=== PATIENT | female | born 1990 | race Hispanic/Latino ===

== ENCOUNTER 2017-09-12 13:42 | Emergency (ER) | payer BC, SELFPAY ==
[2017-09-12] MEDS ORDERED: Adacel (T-DAP) 0.5 ML VIAL ONE (13:50)
[2017-09-12] MEDS ORDERED: Bacitracin Zinc 1 Packet ONE (15:05)
== END 2017-09-12 15:16 | disposition home or self-care (01) ==
LOC: ERS 13:42
DX: S61.512A Laceration without foreign body of left wrist, initial encounter (principal); Z23 Encounter for immunization; X99.1XXA Assault by knife, initial encounter
CPT/HCPCS: 90471; 90715

== ENCOUNTER 2018-12-06 09:08 | Outpatient (CLI) | payer OTHER ==
--- NOTE | 2018-12-06 11:41 | ULT ---
ABDOMINAL ULTRASOUND: Date: 12/06/18 HISTORY: Abdominal pain. FINDINGS: Real-time imaging of the upper abdomen was performed. This shows the gallbladder to have been removed . The common bile duct is never well visualized. The liver is somewhat difficult to penetrate. It elaine sures 18.7 cm in length. I do not see any signs of ductal dilatation. Spleen measures 10.2 cm. Right and left kidneys are normal in size and not obstructed. The pancreas is obscured, as are portio ns of the abdominal aorta and IVC. IMPRESSION: 1. Technically difficult exam due to body habitus. 2. Post cholecystectomy change. 3. Increased echogenicity of the liver suggesting fatty change. POS: [facility]
== END 2018-12-06 09:09 | disposition home or self-care (01) ==
LOC: BICULT 09:08
PROVIDERS: ATTEND Family Medicine
DX: R74.0 Nonspecific elevation of levels of transaminase and lactic acid dehydrogenase [LDH] (principal); R93.2 Abnormal findings on diagnostic imaging of liver and biliary tract; Z90.49 Acquired absence of other specified parts of digestive tract
CPT/HCPCS: 76700

== ENCOUNTER 2024-01-03 15:21 | Emergency (ER) | payer BC ==
[2024-01-03 16:14] LABS: Bacteria/HPF None Seen HPF (None Seen); Bilirubin Negative (Negative); Blood, Urine Trace (Negative); CAUTI Indications for Culture Pelvic or flank pain; Clarity Clear (Clear); Glucose, Urine (Dipstick) Normal (Negative); Ketone, Urine Negative (Negative); Leukocyte 500 Leu/uL (Negative); Nitrite Negative (Negative); Pregnancy Test - Urine (BHCG) Negative (Negative); Pregu Control Background? CLEAR/WHITE (CLR/WHITE); Pregu Control Bar Appear? YES (CONTROL BAR); Protein, Urine (Dipstick) Negative (Neg-Trace); RBC/HPF 0-3 HPF (0-3); Specific Gravity 1.027 (1.002-1.036); Specific Gravity, Urine 1.027 (1.002-1.036); WBC/HPF 21-50 HPF (0-3)
[2024-01-03 16:18] LABS: Urine Culture Reflex Yes Yes
[2024-01-03] MEDS ORDERED: Acetaminophen 500 MG TAB ONE (17:42)
[2024-01-03] MEDS ORDERED: Ketorolac Tromethamine 30 MG (1 mL) VIAL ONE (17:43)
== END 2024-01-03 17:15 | disposition home or self-care (01) ==
LOC: ERS 15:21
DX: M54.50 Low back pain, unspecified (principal); Z55.0 Illiteracy and low-level literacy; X50.3XXA Overexertion from repetitive movements, initial encounter; Y93.89 Activity, other specified; Y92.69 Other specified industrial and construction area as the place of occurrence of the external cause
CPT/HCPCS: 81001; 81025; 87086; 96372; 99283; J1885

== ENCOUNTER 2024-02-11 13:49 | Emergency (ER) | payer BC ==
[2024-02-11] MEDS ORDERED: predniSONE 20 MG TAB ONE (15:02)
[2024-02-11] MEDS ORDERED: Ketorolac Tromethamine 30 MG (1 mL) VIAL ONE (15:02)
== END 2024-02-11 15:29 | disposition home or self-care (01) ==
LOC: ERS 13:49
DX: J02.9 Acute pharyngitis, unspecified (principal)
CPT/HCPCS: 87081; 87400; 87430; 96372; 99282; J1885; J7512

== ENCOUNTER 2025-01-29 15:00 | Emergency (ER) | payer BC ==
[2025-01-29 18:19] LABS: Bacteria/HPF None Seen HPF (None Seen); CAUTI Indications for Culture Pelvic or flank pain; Glucose, Urine (Dipstick) Greater than 1000 mg/dL (Negative); Leukocyte Negative Leu/uL (Negative); Protein, Urine (Dipstick) Negative (Neg-Trace); RBC/HPF 0-3 HPF (0-3); Specific Gravity, Urine 1.043 (1.002-1.036); WBC/HPF 0-3 HPF (0-3)
[2025-01-29 18:20] LABS: Urine Culture Reflex No No
[2025-01-29 19:17] LABS: #Basophils 0.07 10x3/uL (0.0-0.2); #Eosinophils 0.11 10x3/uL (0.0-0.7); #Monocytes 1.15 10x3/uL (0.11-0.59); #Neutrophils 10.29 10x3/uL (1.40-6.50); %Basophils 0.4 % (0.0-1.0); %Eosinophils 0.7 % (0.0-10.0); %Lymphocytes 27.6 % (21.0-51.0); %Monocytes 7.1 % (0.0-10.0); %Neutrophils 63.7 % (42.0-75.0); Hematocrit 41.5 % (36.0-47.0); Hemoglobin 14.1 g/dL (12.0-16.0); Mean Corpuscular Hemoglobin 27.5 pg (27.0-31.0); Mean Corpuscular Volume 81.1 fL (78.0-98.0); Platelet Count 345 10x3/uL (130-400); Red Blood Cell (RBC) Count 5.12 mill/uL (4.20-5.40); White Blood Cell (WBC) Count 16.17 10x3/uL (4.8-10.8)
[2025-01-29 19:26] LABS: Actual Bicarbonate (HCO3v) 26.4 mEq/L (22-28); Base Excess 2.3 mEq/L (-2.0 to +3.0); Calcium, Ionized (venous) 1.21 mmol/L (1.16-1.32); Chloride (VBG) 92 mmol/L (98-106); Potassium (VBG) 4.41 mmol/L (3.70-5.30); Sodium 131 mmol/L (133-146)
[2025-01-29 19:46] LABS: ALT (SGPT) 136 U/L (Less than 34); AST (SGOT) 48 U/L (11-34); Albumin 4.0 g/dL (3.1-4.5); Alkaline Phosphatase 154 U/L (40-110); Anion Gap 15 mmol/L (10-20); BUN (Urea Nitrogen) 6 mg/dL (7.0-18.7); Bilirubin, Total 1.1 mg/dL (0.3-1.2); Calc. Creatinine Clearance 0 mL/min (70-130); Calcium 10.5 mg/dL (7.8-10.44); Carbon Dioxide 26 mmol/L (22-29); Chloride 93 mmol/L (98-107); Globulin 3.7 g/dL (2.4-3.5); Glucose 491 mg/dL (70-105); Lipase 18 U/L (8-78); Magnesium 1.7 mg/dL (1.6-2.6); Potassium 3.9 mmol/L (3.5-5.1); Sodium 130 mmol/L (136-145)
[2025-01-29 21:01] LABS: BHCG - Serum Negative (NEGATIVE); Pregs Control Background? CLEAR/WHITE (CLR/WHITE); Pregs Control Bar Appear? YES (CONTROL BAR)
== END 2025-01-29 22:08 | disposition home or self-care (01) ==
LOC: ERS 15:00
DX: E11.65 Type 2 diabetes mellitus with hyperglycemia (principal); L03.311 Cellulitis of abdominal wall
CPT/HCPCS: 36416; 80053; 81001; 82010; 82805; 83605; 83690; 83735; 84100; 84703; 85025; 93005; 94760; 96360; 96361